=== PATIENT | female | born 1975 | race Caucasian/White ===

== ENCOUNTER 2017-12-08 10:36 | Day surgery (SDC) | payer OTHER ==
[2017-12-08 10:51] VITALS: RESP 16
[2017-12-08] MEDS ORDERED: TRIAMCINOLONE ACETONIDE 40 MG/ML SUS ONE (10:55)
[2017-12-08] MEDS ORDERED: BUPIVACAINE HCL 0.25% MPF 30 ML SOL INFIL ONE (10:56)
[2017-12-08 11:31] VITALS: BP 126/84; PULSE 76; TEMP 97.5; O2SAT 94
== END 2017-12-08 11:45 | disposition home or self-care (01) ==
LOC: SURG 10:36
PROVIDERS: ATTEND Nurse Anesthetist, Certified Registered
DX: M12.9 Arthropathy, unspecified (principal)
CPT/HCPCS: J3300

== ENCOUNTER 2019-01-28 10:04 | Emergency (ER) | payer OTHER | END 2019-01-28 13:08 | disposition short-term general hospital (02) | LOC: ED 10:04 ==